=== PATIENT | male | born 1965 | race Caucasian/White ===

== ENCOUNTER 2022-05-16 08:24 | Day surgery (SDC) | payer BC, OTHER ==
[~2022-05-16 08:24] MED LIST: Lactated Ringers 1,000 ML IV SCH; Propofol 200 MG/20 ML SDV ONE; fentaNYL 100 MCG/2 ML SDV ONE
[2022-05-16] MEDS ORDERED: Lidocaine 2% 5 ML SDV ONE (09:49)
[2022-05-16 10:55] VITALS: BP 120/71; PULSE 50
== END 2022-05-16 11:15 | disposition home or self-care (01) ==
LOC: MW.SDS 08:24
PROVIDERS: ATTEND Surgery
DX: Z12.11 Encounter for screening for malignant neoplasm of colon (principal); K57.30 Diverticulosis of large intestine without perforation or abscess without bleeding; K64.8 Other hemorrhoids; I10 Essential (primary) hypertension; G62.9 Polyneuropathy, unspecified; Z91.013 Allergy to seafood; Z87.891 Personal history of nicotine dependence
CPT/HCPCS: J2704; J3010; J7120

== ENCOUNTER 2022-06-04 09:00 | Day surgery (SDC) | payer BC, OTHER ==
[~2022-06-04 09:00] MED LIST changes: +Acetaminophen 1,000 MG in Premix Bag 1 BAG IV ONE; +Bupivacaine 0.5% 30 ML SDV ONE; +Pregabalin 75 MG Cap PO ONE; +Ropivacaine 0.5% 5 MG/ML 30 ML SDV ONE; +fentaNYL 250 MCG/5 ML SDV ONE
[2022-06-04] MEDS ORDERED: ceFAZolin 2 GM in Premix Bag 1 BAG IV ONE (09:02)
[2022-06-04] MEDS ORDERED: fentaNYL 100 MCG/2 ML SDV ONE (10:01)
[2022-06-04] MEDS ORDERED: Metoclopramide 10 MG/2 ML SDV IVPUSH PRN (10:17)
[2022-06-04] MEDS ORDERED: HYDROmorphone 1 MG/ML Syringe IVPUSH PRN (10:17)
[2022-06-04] MEDS ORDERED: Ondansetron 4 MG/2 ML SDV IVPUSH PRN (10:17)
[2022-06-04] MEDS ORDERED: Morphine 2 MG/ML SYRINGE IVPUSH PRN (10:17)
[2022-06-04] MEDS ORDERED: Naloxone 0.4 MG/ML SDV IVPUSH PRN (10:17)
[2022-06-04] MEDS ORDERED: fentaNYL 50 MCG/ML SDV IVPUSH PRN (10:17)
[2022-06-04] MEDS ORDERED: Albuterol 0.083% 2.5 MG/3 ML Neb Soln NEB PRN (10:17)
[2022-06-04] MEDS ORDERED: ePHEDrine 50 MG/ML SDV ONE (11:56)
[2022-06-04] MEDS ORDERED: Phenylephrine HCl In 0.9% NaCl 1 MG/10 ML Vial ONE (11:56)
[2022-06-04] MEDS ORDERED: Glycopyrrolate 0.2 MG/ML SDV ONE (11:56)
[2022-06-04] MEDS ORDERED: Ondansetron 4 MG/2 ML SDV ONE (11:58)
[2022-06-04] MEDS ORDERED: Dexamethasone 4 MG/ML 5 ML MDV ONE (11:58)
[2022-06-04] MEDS ORDERED: Sugammadex Sodium 200 MG/2 ML VIAL ONE (11:58)
[2022-06-04] MEDS ORDERED: Ketorolac 30 MG/ML SDV ONE (11:58)
[2022-06-04] MEDS ORDERED: Famotidine 20 MG/2 ML SDV ONE (12:16)
[2022-06-04 14:09] VITALS: BP 150/80; PULSE 58
== END 2022-06-04 14:20 | disposition home or self-care (01) ==
LOC: MW.SDS 09:00
PROVIDERS: ATTEND Surgery
DX: K42.9 Umbilical hernia without obstruction or gangrene (principal); K57.30 Diverticulosis of large intestine without perforation or abscess without bleeding; I10 Essential (primary) hypertension; Z87.891 Personal history of nicotine dependence; Z91.013 Allergy to seafood; Z79.899 Other long term (current) drug therapy
CPT/HCPCS: 49585; A9270; C1781; J0131; J1100; J1885; J2405; J2704; J2795; J3010; J3490; J7120